=== PATIENT | male | born 1950 | race Caucasian/White ===

== ENCOUNTER 2025-03-27 09:16 | Emergency (ER) | payer MEDICARE, OTHER ==
[~2025-03-27] VITALS: Ht 182.9 cm; Wt 86.2 kg
[2025-03-27] MEDS ORDERED: PRED5TAB PO (09:37)
[2025-03-27] MEDS ORDERED: AMOX500C2 PO (09:37)
--- NOTE | 2025-03-27 09:37 | ERN ---
General Chief Complaint: Other Problems Stated Complaint: LUMP ON BACK OF HEAD Time Seen by MD: 09:18 Source: patient History of Present Illness Initial Comments In his is a 75-year-old male with a two day history of posterior ear swelling. Patient states that this just started a day ago. No fever no chills Allergies: Coded Allergies: No Known Drug Allergies (Unverified Allergy, Unknown, 03/27/25) Past Medical History Past Medical History: High Cholesterol Past Surgical History: Other Surgical History Other: CAROTID SX ROS Dictation CONSTITUTIONAL: No chills, no fever, no weakness, no diaphoresis, no malaise. HEAD/FACE: No signs of trauma. EENT: No eye pain, no blurred vision, no tearing, no double vision, no ear pain, no ear discharge, no nose pain, no nasal congestion, no throat pain, no throat swelling, no mouth pain. RESPIRATORY: No cough, no orthopnea, no SOB, no stridor, no wheezing. CARDIOVASCULAR: No chest pain, no edema, no palpitations, no syncope. GASTROINTESTINAL/ABDOMINAL: No abdominal pain, no constipation, no diarrhea, no nausea, no vomiting. GENITOURINARY: No abnormal discharge, no dysuria, no frequent urination, no hematuria. No complaints of pain in the genitals. MUSCULOSKELETAL: No back pain, no gout, no joint pain, no joint swelling, no muscle pain, no muscle stiffness, no neck pain. INTEGUMENTARY: No change in color, no change in hair/nails, no dryness, no lesion, no lumps, no rash. NEUROLOGICAL/PSYCH: No anxiety, not depressed, no emotional problem, no headache, no numbness, no pre-existing deficit, no history of seizures, no tremors, no weakness. HEMATOLOGIC/LYMPHATIC: Not anemic, no history of blood clots, no apparent bleeding, no bruising, glands not swollen. All Systems Negative, Except as Noted. Physical Exam Physical Exam Dictation VITAL SIGNS: Reviewed. GENERAL APPEARANCE: Alert, oriented x3, no acute distress, obese. HEAD AND FACE: Non-traumatic. Left postauricular lymph node swelling EYES: PERRL, pink conjunctivas, eyelid no trauma, anterior chamber clear. EARS: Pinnas intact and no signs of trauma or erythema. Ear canals clear and no discharge. TMs no erythema. NOSE: No discharge, no bleeding. OROPHARYNX: Mouth normal, teeth no caries, tongue pink. Pharynx clear, no erythema. Tonsils no exudates, no abscesses noted. Mucous membrane moist. NECK: Supple, non-tender, no thyromegaly, no masses, no JVD, no bruits. BREAST: Deferred. CHEST: No tenderness, no crepitus, no paradoxical movement, no retractions. LUNGS: Clear, well-ventilated, symmetric, no rales, no wheezing, no rhonchi, no stridor, good breath sounds bilaterally. HEART: Regular rate, regular rhythm, no murmur, no gallops. VASCULAR: No peripheral edema. ABDOMEN: Soft, positive bowel sounds, nondistended, no guarding, nontender, no rebound, no masses no hepatomegaly, no splenomegaly, no Rascon's sign, no hernias. RECTAL: Deferred. GENITAL: Deferred. NEUROLOGICAL: Normal speech, gross motor function intact, gross sensory function intact. MUSCULOSKELETAL: Neck nontender, full range of motion, back nontender, full range of motion. EXTREMITIES: Nontender, full range of motion. SKIN: Color pink, dry, no turgor, no rash, no lacerations, no abrasions, no contusions. LYMPHATICS: Deferred. Results Laboratory and Microbiology Labs Reviewed?: Yes MDM MDM: Differential diagnosis: Lymphangitis, URI Rationale: Tests considered and ordered secondary to shared decision making include: Previous outside records reviewed: Old ER visits. Risk of complication and/or morbidity or mortality of patient management: None Medications-Per medication reconciliation Need for hospitalization: Patient does not meet criteria for hospitalization. Need for emergency major/minor surgery: No Patient is a 75-year-old male coming in to be evaluated for postauricular swelling. On physical exam mild lymphangitis noticed. Educated patient on findings and appropriate follow up with the PCP for ongoing evaluation and management. ED Course Vital Signs Date Time Temp Pulse Resp B/P (MAP) Pulse Ox O2 Delivery O2 Flow Rate FiO2 03/27/25 09:18 96.8 51 17 123/59 98 Room Air 0 DX & DISP Disposition: Discharge Departure Impression: Primary Impression: Lymphangitis Condition: Stable Scripts Prednisone (Prednisone) 5 Mg Tablet 1 TAB PO DAILY for 7 Days, #7 TAB 0 Refills Prov: VEE MCKEON MD 03/27/25 Amoxicillin (Amoxicillin) 500 Mg Capsule 1 CAP PO TID for 10 Days, #30 CAP 0 Refills Prov: VEE MCKEON MD 03/27/25 Additional Instructions: FOLLOW-UP WITH PRIMARY CARE PROVIDER IN 1 TO 2 DAYS. TAKE MEDICATIONS DIRECTED HERE IN THE EMERGENCY ROOM. OKAY TO CONTINUE HOME MEDICATIONS UNLESS OTHERWISE DISCUSSED DURING YOUR VISIT IN THE EMERGENCY ROOM TODAY. RETURN TO YOUR NEAREST EMERGENCY ROOM IF SYMPTOMS WORSEN OR IF THERE IS NO IMPROVEMENT. CALL 911 IF YOU NEED IMMEDIATE ASSISTANCE. TAKE TYLENOL [id number] NEEDED AND IF NO CONTRAINDICATIONS ARE PRESENT. INCREASE ORAL HYDRATION. A WOUND CULTURE OR URINE CULTURE WAS ORDERED HERE IN THE EMERGENCY ROOM DEPARTMENT PLEASE FOLLOW-UP WITH PRIMARY CARE PROVIDER AND ADVISE THEM TO GET REPORTS FROM OUR FACILITY. IF YOU HAD ANY HANANE WRAP/SPLINTS THAT WERE APPLIED HERE, PLEASE DO NOT REMOVE THEM UNTIL YOU SEE YOUR PRIMARY CARE OR SPECIALTY. Referrals: Referrals: MICKI FINLEY MD (PCP) Time of Disposition: 09:35 VEE MCKEON MD Mar 27, 2025 09:37
[2025-03-27 09:50] VITALS: BP 123/59; PULSE 51; RESP 14; TEMP 96.8; O2SAT 98
--- NOTE | 2025-03-27 09:52 | NUR ---
DISHCARGED AT THIS TIME. [employer] STAFF ON ACCOUNT.
== END 2025-03-27 09:53 | disposition home or self-care (01) ==
LOC: EDH 09:16
DX: I89.1 Lymphangitis (principal); E78.00 Pure hypercholesterolemia, unspecified; Z98.890 Other specified postprocedural states
CPT/HCPCS: 99281; 99282; 99283

== ENCOUNTER 2025-08-12 13:21 | Emergency (ER) | payer OTHER ==
[~2025-08-12] VITALS: Ht 182.9 cm; Wt 83.9 kg
[~2025-08-12 13:21] MED LIST: AMOX500C2 PO; PRED5TAB PO
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
[2025-08-12] MEDS ORDERED: DOCU-116 PO (16:23)
[2025-08-12] MEDS ORDERED: ACET-66 PO (16:23)
[2025-08-12] MEDS ORDERED: IBUP-1492 PO (16:23)
[2025-08-12 16:35] VITALS: BP 144/71; PULSE 53; RESP 19; TEMP 98.7; O2SAT 100
== END 2025-08-12 16:36 | disposition home or self-care (01) ==
LOC: EDH 13:21
DX: M54.2 Cervicalgia (principal); M54.50 Low back pain, unspecified; R20.0 Anesthesia of skin; E78.00 Pure hypercholesterolemia, unspecified; Z79.899 Other long term (current) drug therapy; Z79.1 Long term (current) use of non-steroidal anti-inflammatories (NSAID); Z79.52 Long term (current) use of systemic steroids; V49.9XXA Car occupant (driver) (passenger) injured in unspecified traffic accident, initial encounter; Y93.89 Activity, other specified; Y92.488 Other paved roadways as the place of occurrence of the external cause; Y99.8 Other external cause status
CPT/HCPCS: 72125; 72128; 72131; 99284